=== PATIENT | male | born 1960 | race African-American/Black ===

== ENCOUNTER 2019-02-01 19:23 | Emergency (ER) | payer SELFPAY ==
[~2019-02-01] VITALS: Ht 177.8 cm; Wt 80.0 kg
[2019-02-01] MEDS: MORPHINE SULFATE 10 MG/ML CPJ IM ONE (20:17)
[2019-02-02 01:11] VITALS: BP 109/66
== END 2019-02-02 01:47 | disposition home or self-care (01) ==
LOC: ER 21:14
DX: S09.90XA Unspecified injury of head, initial encounter (principal); J44.9 Chronic obstructive pulmonary disease, unspecified; E11.9 Type 2 diabetes mellitus without complications; I10 Essential (primary) hypertension; F10.129 Alcohol abuse with intoxication, unspecified; J96.10 Chronic respiratory failure, unspecified whether with hypoxia or hypercapnia; Y90.8 Blood alcohol level of 240 mg/100 ml or more
CPT/HCPCS: 36415; 70450; 70486; 80320; 96372; 99284; J2270; G0480

== ENCOUNTER 2023-08-29 20:25 | Emergency (ER) | payer MEDICARE ==
[~2023-08-29] VITALS: Ht 172.7 cm; Wt 66.0 kg
[2023-08-29 20:27] VITALS: O2SAT 97
[2023-08-29] MEDS: ONDANSETRON HCL 4MG TABLET PO ONE (21:06)
[2023-08-29] MEDS: ACETAMINOPHEN 325MG TABLET PO ONE (21:06)
[2023-08-29] MEDS ORDERED: GUAI-948 MT (22:07)
[2023-08-29 22:12] VITALS: BP 118/70; PULSE 68; RESP 18; TEMP 98.1
== END 2023-08-29 22:13 | disposition home or self-care (01) ==
LOC: ER 20:25
DX: B34.9 Viral infection, unspecified (principal); J44.9 Chronic obstructive pulmonary disease, unspecified; E11.9 Type 2 diabetes mellitus without complications; I10 Essential (primary) hypertension
CPT/HCPCS: 99283; Q0162